=== PATIENT | male | born 1935 | race Caucasian/White ===

== ENCOUNTER → 2021-02-02 09:59 | Outpatient (CLI) | payer MEDICARE, OTHER, SELFPAY ==
--- NOTE | 2021-02-02 10:01 | DI.NM.S_ITS ---
PROCEDURE: NM BONE SCAN WHOLE BODY RADIOPHARMACEUTICAL: 20.2 mCi Tc-99m MDP IV. INDICATIONS: prostate cancer TECHNIQUE: Delayed whole-body scintigrams were obtained approximately 3-4 hours after intravenous injection of radiotracer. Anterior and posterior views were acquired from vertex to feet. Additional left and right oblique views of the chest were obtained. COMPARISON: None. FINDINGS: Multiple sites of degenerative uptake of radiotracer within the bilateral glenohumeral and acromioclavicular joints, bilateral knee joints, ankle joints, mid feet and hind flea. Indeterminate focus of increased radiotracer activity at T12-L1. Kidneys normal in position. IMPRESSION: 1. Indeterminate radiotracer uptake at the thoracolumbar junction. Further assessment with lumbar spine MRI with and without intravenous contrast is recommended. 2. Multiple sites of degenerative uptake of radiotracer. Dictated by: Fred David M.D. on 02/02/2021 at 15:31 Approved by: Fred David M.D. on 02/02/2021 at 15:32
== END ==
PROVIDERS: PCP Specialist; Referring Provider Internal Medicine Medical Oncology; Visit Provider Internal Medicine Medical Oncology
DX: C61 Malignant neoplasm of prostate (principal)
CPT/HCPCS: 78306; A9503